=== PATIENT | male | born 1975 | race Caucasian/White ===

== ENCOUNTER 2017-06-10 11:15 | Emergency (ER) | payer BC ==
[~2017-06-10] VITALS: Ht 172.7 cm; Wt 77.1 kg
--- NOTE | 2017-06-10 11:20 | NUR ---
AAOX3, [place] AND [employer] FROM HOME, PARENTS CALLED 911 BECAUSE PATIENT WAS AGITATED. PATIENT WAS SCREAMING AND VERY AGITATED UPON ARRIVAL. SKIN IS WARM AND DRY. RESP IS EVEN AND UNLABORED WITH NAD NOTED. DR NUNEZ AT FOR EVAL.
[2017-06-10] MEDS ORDERED: diphenhydrAMINE HCL 50 MG/ML VIAL ONE (11:22)
[2017-06-10] MEDS ORDERED: OLANZAPINE 10 MG VIAL IM ONE ×2 (11:22→11:30)
[2017-06-10] MEDS ORDERED: LORAZEPAM INJ 2 MG/ML VIAL ONE ×2 (11:23→12:02)
[2017-06-10] MEDS ORDERED: ALPR0.25 PO (11:24)
[2017-06-10] MEDS ORDERED: LORA0.5T PO (11:24)
[2017-06-10] MEDS ORDERED: LORAZEPAM INJ 2 MG/ML VIAL IM ONE ×2 (11:30→12:00)
[2017-06-10] MEDS ORDERED: LORAZEPAM INJ 2 MG/ML VIAL IVP ONE (11:30)
[2017-06-10] MEDS ORDERED: diphenhydrAMINE HCL 50 MG/ML VIAL IM ONE (11:30)
[2017-06-10 11:41] LABS: BASOPHILS # (AUTO) 0.1 /CMM (0.0-0.2); BASOPHILS % (AUTO) 0.7 % (0.0-2.0); EOSINOPHILS # (AUTO) 0.1 /CMM (0.0-0.7); EOSINOPHILS % (AUTO) 0.9 % (0.0-6.0); HEMATOCRIT 48 % (39-51); HEMOGLOBIN 16.1 g/dL (13.5-17.5); LYMPHOCYTES # (AUTO) 2.1 /CMM (0.8-4.8); LYMPHOCYTES % (AUTO) 23.9 % (20.0-44.0); MEAN CORPUSCULAR HEMOGLOBIN 30 PG (26.0-33.0); MEAN CORPUSCULAR HGB CONC 34 g/dl (31.0-36.0); MEAN CORPUSCULAR VOLUME 90 fL (80-96); MONOCYTES # (AUTO) 0.7 /CMM (0.1-1.30); MONOCYTES % (AUTO) 8.1 % (2.0-12.0); NEUTROPHILS # (AUTO) 5.9 /CMM (1.8-8.9); NEUTROPHILS % (AUTO) 66.4 % (43.0-81.0); PLATELET COUNT (AUTO) 291 /CMM (150-450); RDW COEFFICIENT OF VARIATION 11.7 (11.5-15.0); RED BLOOD CELL COUNT(AUTO) 5.32 MIL/uL (4.5-6.0); WHITE BLOOD COUNT (AUTO) 8.9 K/uL (4.3-11.0)
[2017-06-10 11:52] LABS: CALCIUM, SERUM 9.2 mg/dL (8.5-10.1); CARBON DIOXIDE 27 mmol/L (21-32); CHLORIDE 105 mmol/L (98-107); CREATININE 1.2 mg/dL (0.6-1.3); GLUCOSE 100 mg/dL (74-106); POTASSIUM 3.7 mmol/L (3.5-5.1); SODIUM SERUM 139 mmol/L (136-145); UREA NITROGEN, BLOOD 16 mg/dL (7-18)
[2017-06-10 11:57] LABS: ALANINE AMINOTRANSFERASE 52 U/L (12-78); ALBUMIN 4.4 g/dL (3.4-5.0); ALCOHOL, BLOOD < 3 mg/dL (0-0); ALKALINE PHOSPHATASE 65 U/L (46-116); ASPARTATE AMINOTRANSFERASE 38 U/L (15-37); BILIRUBIN,DIRECT 0.1 mg/dL (0.0-0.2); BILIRUBIN,TOTAL 0.4 mg/dL (0.2-1.0); TOTAL PROTEIN, SERUM 7.7 g/dL (6.4-8.2)
--- NOTE | 2017-06-10 13:33 | NUR ---
PATIENT UNABLE TO URINATE AT THIS MOMENT. DR NUNEZ MADE AWARE.
--- NOTE | 2017-06-10 19:15 | NUR ---
RECEIVED REPORT FROM ADRIA PEPE FOR [facility]. PT REFUSED TO PROVIDE URINE AT THIS TIME. MD SIMON.
--- NOTE | 2017-06-10 19:41 | NUR ---
URINE COLLECTED. CALLED LAB FOR COMMUNICATIONS COORDINATOR.
[2017-06-10 19:45] LABS: APPEARANCE,URINE Clear (CLEAR); BILIRUBIN,URINE Negative (NEGATIVE); BLOOD, URINE Negative Ery/uL (NEGATIVE); COLOR,URINE Yellow (YELLOW); KETONES,URINE Negative (NEGATIVE); LEUKOCYTE ESTERASE ,URINE Negative (NEGATIVE); NITRITE, URINE Negative (NEGATIVE); PH,URINE 6.5 (5.0-8.0); PROTEIN,URINE Trace mg/dl (NEGATIVE); UGLUCOSE Negative (NEGATIVE); UROBILINOGEN,URINE 0.2 EU/dL (0.2)
[2017-06-10 19:49] LABS: BACTERIA,URINE Rare /HPF (None Seen); RBC,URINE NONE SEEN /HPF (0-2); SQUAMOUS EPITHELIAL CELL,UR Few /HPF (None Seen); WBC,URINE NONE SEEN /HPF (0-3)
--- NOTE | 2017-06-10 20:59 | NUR ---
REPORT GIVEN TO [facility]. ADMITTING MD: [phone] EX [phone]
--- NOTE | 2017-06-10 21:18 | NUR ---
[facility] called for transport. ETA [id number]
[2017-06-10 21:39] VITALS: BP 136/68
--- NOTE | 2017-06-10 21:39 | NUR ---
REPORT GIVEN TO EMT FOR TRANSPORT
--- NOTE | 2017-06-10 22:40 | NUR ---
REPORT GIVEN TO ADRIA MAI FROM ADMITTING FACILITY
== END 2017-06-10 21:48 ==
LOC: ER 11:16
DX: F23 Brief psychotic disorder (principal)
CPT/HCPCS: 36415; 80048; 80076; 80305; 81001; 85025; 96372 ×4; 99285; A4606; G0480; J1200; J2060 ×2; J3490; Z7610; 81000-TC